=== PATIENT | female | born 1985 | race Caucasian/White ===

== ENCOUNTER 2021-10-20 08:35 | Emergency (ER) | payer OTHER ==
[2021-10-20] MEDS ORDERED: Dicyclomine 20 MG/2 ML VIAL ONE (08:54)
== END 2021-10-20 09:17 | disposition home or self-care (01) ==
LOC: BURERS 08:35
DX: K44.9 Diaphragmatic hernia without obstruction or gangrene (principal); K21.9 Gastro-esophageal reflux disease without esophagitis
CPT/HCPCS: 96372; 99283